=== PATIENT | female | born 1955 | race Caucasian/White ===

== ENCOUNTER 2016-06-26 16:03 | Emergency (ER) | payer BC ==
[2016-06-26] MEDS ORDERED: XYLOCAINE 1%/Epi 1:100000 MDV 20 ML IJ ONE (17:24)
[2016-06-26] MEDS ORDERED: BACIGUENT PACKET TP ONE (17:24)
[2016-06-26] MEDS ORDERED: Adacel Vial IM ONE ×2 (17:25→17:28)
[2016-06-26] MEDS ORDERED: BACIGUENT PACKET ONE (17:28)
[2016-06-26] MEDS ORDERED: XYLOCAINE 1%/Epi 1:100000 MDV 20 ML ONE (17:28)
--- NOTE | 2016-06-26 17:30 | ERPHSYRPT ---
- History of Present Illness Time Seen by Provider: 06/26/16 17:18 Source: patient, family Patient Subjective Stated Complaint: TRIPPED OVER TRASH CAN AND CUT LEFT FOREHEAD ON LID OF TRASH CAN. DENIES LOC Triage Nursing Assessment: AMBULATED TO ROOM PER SELF. SKIN W/D, COLOR NORMAL, RESP EASY. 4CM LAC TO LEFT FOREHEAD WITH MINMAL BLEEDING. DENIES ANY OTHER INJURY Physician History: CC: cut to forehead hx: 61 y/o patient of Dr Kay cut left forehead on a reublic trash can lid. Sharp edge. No blunt injury. States has not had recent tetanus vaccine. No LOC. No neck or back pain. No blurred or double vision. No N/T/W. No vomiting. Occurred: just prior to arrival Severity: mild Allergies/Adverse Reactions: metronidazole Allergy (Mild, Verified 06/26/16 16:11) nystatin Allergy (Mild, Verified 06/26/16 16:11) terconazole Allergy (Mild, Verified 06/26/16 16:11) Home Medications: Lisinopril 1 tab PO DAILY 07/27/15 [History] Propranolol HCl 1 tab PO DAILY 07/27/15 [History] Ranitidine HCl [Zantac 75] 1 tab PO DAILY PRN PRN 07/27/15 [History] Albuterol Sulfate [Proair Hfa] 0 gm IH DAILY 06/26/16 [History] Benzonatate [Tessalon Perle] 100 mg PO UD 06/26/16 [History] Hx Tetanus, Diphtheria Vaccination/Date Given: No Hx Influenza Vaccination/Date Given: No Hx Pneumococcal Vaccination/Date Given: No - Review of Systems Constitutional: No Symptoms Eyes: No Vision Changes, No Double Vision Abdominal/Gastrointestinal: No Nausea, No Vomiting Musculoskeletal: No Back Pain, No Neck Pain, No Joint Pain Skin: Skin Lesions Neurological: No Focal Weakness, No Headache, No Parasthesia All Other Systems: Reviewed and Negative - Past Medical History Pertinent Past Medical History: Yes Neurological History: No Pertinent History ENT History: No Pertinent History Cardiac History: High Cholesterol, Hypertension, Other Respiratory History: COPD Endocrine Medical History: No Pertinent History Musculoskeletal History: No Pertinent History GI Medical History: GERD History: Other (not sexually active for 3 years, last period almost 10 years ago) Psycho-Social History: No Pertinent History Female Reproductive Disorders: Other Other Medical History: hx palpatations, hx of on and off vaganial infections - Past Surgical History Past Surgical History: No Neuro Surgical History: No Pertinent History Cardiac: No Pertinent History Respiratory: No Pertinent History Gastrointestinal: No Pertinent History Genitourinary: No Pertinent History Musculoskeletal: No Pertinent History Female Surgical History: No Pertinent History - Social History Smoking Status: Current every day smoker How long have you smoked: 40 Exposure to second hand smoke: Yes Drug Use: none Patient Lives Alone: Yes - Nursing Vital Signs Nursing Vital Signs: Initial Vital Signs Temperature 97.3 F Temperature Source Oral Pulse Rate 77 Respiratory Rate 16 Blood Pressure [Right Arm] 119/90 Pain Intensity 0 - [place] Coma Score Best Eye Response ([place]): (4) open spontaneously Best Verbal Response ([place]): (5) oriented Best Motor Response ([place]): (6) obeys commands [place] Total: 15 - Physical Exam General Appearance: alert Head Injury: lacerations (linear left forehead 3cm) Eye Exam: bilateral eye: PERRL, EOMI ENT Exam: airway nml Neck Exam: supple, full range of motion, No mid-line tenderness Cardiovascular/Respiratory Exam: normal breath sounds, regular rate/rhythm Gastrointestinal/Abdominal Exam: soft Back Exam: normal inspection, normal range of motion Extremity Exam: non-tender, normal range of motion Mental Status Exam: alert, oriented x 3, cooperative Motor/Sensory Exam: no motor deficit, no sensory deficit Skin Exam: warm, dry, No rash Procedures - Laceration/Wound Repair left forehead Wound Location: Left, forehead Wound Length (cm): 3 Wound's Depth, Shape: linear, into subcut Wound Explored: no foreign body noted Irrigated: Yes Hibiclens Prep: Yes Anesthesia: local, 1% lidocaine w/ Epi Volume Anesthetic (ccs): 4 Wound Repaired With: sutures Suture Size/Type: 5-0, prolene Number of Sutures: 5 Layer Closure?: No - Course Nursing assessment & vital signs reviewed: Yes Ordered Tests: Active Orders 24 hr Category Date Time Status Prepare for Sutures STAT Care 06/26/16 17:24 Active Sutures STAT Care 06/26/16 17:25 Active Wound Care STAT Care 06/26/16 17:24 Active Medication Summary Discontinued Medications Generic Name Dose Route Start Last Admin Trade Name Freq PRN Reason Stop Dose Admin Bacitracin 0.9 gm 06/26/16 17:24 06/26/16 17:30 Baciguent Packet TP 06/26/16 17:25 0.9 gm STAT ONE Administration Bacitracin Confirm 06/26/16 17:28 Baciguent Packet Administered 06/26/16 17:29 Dose 1 gm .ROUTE .STK-MED ONE Diphtheria/Tetanus/Acell Pertussis 0.5 ml 06/26/16 17:25 06/26/16 17:30 Adacel Vial IM 06/26/16 17:26 0.5 ml .ONCE ONE Administration Diphtheria/Tetanus/Acell Pertussis Confirm 06/26/16 17:28 Adacel Vial Administered 06/26/16 17:29 Dose 0.5 ml IM .STK-MED ONE Lidocaine/Epinephrine 5 ml 06/26/16 17:24 06/26/16 17:30 Xylocaine 1%/Epi [id number] Mdv 20 Ml IJ 06/26/16 17:25 5 ml STAT ONE Administration Lidocaine/Epinephrine Confirm 06/26/16 17:28 Xylocaine 1%/Epi [id number] Mdv 20 Ml Administered 06/26/16 17:29 Dose 1 ml .ROUTE .STK-MED ONE - Progress Progress Note: 06/26/16 17:30 CT not indicated. Will close laceration. Wound and head injury instructions given. Counseled pt/family regarding: diagnosis, need for follow-up - Departure Time of Disposition: 17:47 Departure Disposition: Home Clinical Impression: laceration left forehead Condition: Stable Critical Care Time: No Referrals: SUMIT KAY [Primary Care Provider] - Instructions: Care for a Laceration After Repair Additional Instructions: LACERATION CARE 1. Do not use peroxide, merthiolate, alcohol, or betadine. 2. Keep wound clean and dry. 3. Change dressing if it becomes wet or soiled. 4. If you must work, wear protective covering. 5. You may return to the emergency department or see your family physician for suture removal. 6. See your family physician or return to the emergency department for any of the following signs or symptoms: A. Redness B. Swelling C. Discolored drainage D. Red streaks E. Elevated temperature F. Other signs of infection HEAD INJURY 1. A responsible person should observe the patient at home for 24 hours. 2. If any of the following signs or symptoms are observed or occur, call your family physician or return to the emergency department: A. Behavior change B. Persistent vomiting C. Unequal pupils D. Increasing drowsiness E. Difficulty in arousing the patient F. Severe headache G. Lump on head increasing in size Suture removal in 7-8 days.
[2016-06-26 17:58] VITALS: BP 122/88; PULSE 70; O2SAT 98
== END 2016-06-26 17:56 | disposition home or self-care (01) ==
LOC: ED 16:03
PROC: 0HQ1XZZ Repair Face Skin, External Approach (ICD-10-PCS; principal; 2016-06-26)
DX: S01.81XA Laceration without foreign body of other part of head, initial encounter (principal); W01.118A Fall on same level from slipping, tripping and stumbling with subsequent striking against other sharp object, initial encounter
CPT/HCPCS: 12013; 90471; 90715; 99284